=== PATIENT | female | born 1935 | race Caucasian/White ===

== ENCOUNTER → 2016-07-23 | Outpatient (CLI) | payer MEDICARE ==
[~2016-07-23] MED LIST: ASPIRIN PO; AUGMENTIN PO; B COMPLEX VITAMIN; CALCIUM500 MG PO; CELEBREX PO; DIOVAN HCT 160-1 TAB PO; DIOVAN PO; EXFORGE; GLUCOSAMINE-CH1 EAC3 PO; LIPITOR PO; LORTAB 5/500 TA1 TA2 PO; LORTAB 7.5-5001 TAB PO; NEURONTIN PO; TRAZODONE PO; VITAMIN C500 M1 PO
--- NOTE | ~2016-07-23 | MY11 ---
[facility] A Service [facility] RADIOLOGY TEXT RESULTS PATIENT: PINA MOSS LOCATION: [facility] : 35 UNIT #: [id number] AGE: [address]: Raymon Patel MD SEX: F ORDER DR: [id number] [address] [address] [id number] O MR#: [id number] Acc #: [id number] NAME: PINA MOSS : 1935 SEX: F STUDY DATE/TIME: 07/23/2016 11:09 UNIT: [facility] ROOM: STUDY DESCRIPTION: MY Mammogram Screening Dig Jacobo Attending Physician: Raymon Patel M.D. Referring Physician: Raymon Patel M.D. Ordering Physician: Raymon Patel M.D. Primary Care Physician: Raymon Patel M.D. MEDICAL IMAGING REPORT This report is preliminary unless electronic signature is present. EXAM Bilateral digital screening mammogram with CAD device 07/23/2016 HISTORY Routine screening. FINDINGS Digital imaging of each breast was completed utilizing a two-view examination of each breast in craniocaudal and mediolateral-oblique projections. Review and interpretation of digital mammograms include a second review in conjunction with FDA-approved CAD device. There is a normal parenchymal presentation bilaterally consistent with the patient's age. There are no breast masses imaged and no parenchymal asymmetry is visualized. There are no suspicious microcalcifications and I see no focal architectural disturbance. IMPRESSION Negative screening digital mammogram. One-year followup recommended. Patients over the age of 40 are entered into a reminder system with target due date for the next mammogram. A result letter will also be sent to the patient. BIRADS: 1 Negative Dictated by... Melvin Campbell M.D. THIS IS AN ELECTRONICALLY VERIFIED REPORT Melvin Campbell M.D. at 07/24/2016 8:28 AM RODNEY/jennifer [facility] A [facility] RADIOLOGY TEXT RESULTS PATIENT: PINA MOSS [id number] 35 UNIT #: [id number] AGE: [address]: Raymon Patel MD SEX: F ORDER DR: TD: 07/23/2016 13:05 JOB #: [id number] MEDICAL IMAGING REPORT Page 1 of 1
== END | disposition home or self-care (01) ==
LOC: SMAM 10:35
DX: Z12.31 Encounter for screening mammogram for malignant neoplasm of breast (principal)
CPT/HCPCS: G0202